=== PATIENT | female | born 1950 | race Caucasian/White ===

== ENCOUNTER 2018-09-28 06:46 | Day surgery (SDC) | payer MEDICARE ==
[2018-09-27 13:20] VITALS: BMI 18.3
--- NOTE | 2018-09-28 10:21 | RAD ---
CERVICAL MYELOGRAM: Date: 09/28/18 HISTORY: Cervicalgia. EXPOSURE: 0.5 minutes. 30.1 mGy*cm^2. 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 Vertebral body height is maintained. No fracture. There is moderat e degenerative change at the thoracolumbar junction. 2 VIEW SLIP BRIDGE OPERATOR CERVICAL SPINE: There is no prevertebral soft tissue swelling. Predental space is normal. Moderate to severe loss of disc space height at C5-C6, C6-C7, and C7-T1. There is anterolisthesis of C4 upon C5 (2.3 mm). CERVICAL MYELOGRAM: A total of 10 mL Isovue-M 300 contrast administered intrathecally. No immediate or postprocedure comp lications. TECHNIQUE: Consent obtained to perform a lumbar puncture for cervical myelogram. The L3-L4 level was deemed appr opriate. Skin was prepped and draped in the sterile fashion. 1% lidocaine, buffered with sodium bicar bonate, was used for local anesthesia. Under fluoroscopic guidance, a 22 gauge spinal needle was adva nced into the CSF space. Inner stylette was removed. Prompt flow of clear CSF to the hub of the needl e. Via a short tubing catheter, a total of 10 mL of Isovue-M 300 contrast was administered intratheca lly. The patient tolerated the procedure well. No immediate or postprocedure complications. IMPRESSION: Successful lumbar puncture for cervical myelogram. POS: [facility]
[2018-09-28] MEDS ORDERED: Iopamidol-M 300 61% 15 ML VIAL ONE (10:34)
--- NOTE | 2018-09-28 10:37 | CT ---
POST MYELOGRAM CERVICAL SPINE CT: Date: 09/28/18 HISTORY: Cervicalgia. COMPARISON: None. TECHNIQUE: Post myelogram cervical spine CT is performed in the axial plane. Reformatted images are submitted fo r interpretation. FINDINGS: No craniocervical dissociation. Lateral masses of C1 and C2 have overall appropriate articulation. Th ere is 2.1 mm of anterolisthesis of C3 upon C4 and 2.5 mm of anterolisthesis of C4 upon C5. Cervical spine vertebral body height is maintained. There is no fracture. The visualized soft tissue neck structures are unremarkable. No prevertebral soft tissue swelling. Mediastinum is unremarkable. There is scarring in both lung apices. C2-C3: No significant central canal stenosis. Neural foramina are patent. C3-C4: Broad based disc osteophyte complex. Mild central canal stenosis. Degenerative changes in the right facet and right uncovertebral hypertrophy result in mild right foraminal narrowing. Left neura l foramen is patent. C4-C5: Broad based disc osteophyte complex abuts the thecal sac. No significant central canal stenos is. Neural foramina is patent. There is mild right facet hypertrophy. C5-C6: Broad based disc osteophyte complex abuts the thecal sac. Ventral subarachnoid space is maint ained. However, there is mild deformity of the ventral cord. Nevertheless, there is no significant ce ntral canal stenosis. Neural foramina are patent. There is mild right facet hypertrophy. C6-C7: Broad based disc osteophyte complex abuts the thecal sac. Central and left paracentral subara chnoid space is effaced anteriorly. Minimal deformity of the ventral cord. Mild central canal stenosi s. Right neural foramen is patent. Mild left foraminal narrowing due to left uncovertebral hypertroph y. C7-T1: Broad based disc abuts the thecal sac. No significant central canal stenosis. Neural foramina are patent. IMPRESSION: Degenerative changes of cervical spine as above. POS: [facility]
== END 2018-09-28 12:39 | disposition home or self-care (01) ==
LOC: RAD 06:46 → EDSTATUS 08:00 → RAD 12:39
PROVIDERS: ATTEND Neurological Surgery
PROC: B01B1ZZ Fluoroscopy of Spinal Cord using Low Osmolar Contrast (ICD-10-PCS; principal; 2018-09-28)
DX: M48.02 Spinal stenosis, cervical region (principal); M25.78 Osteophyte, vertebrae; F41.9 Anxiety disorder, unspecified; F32.9 Major depressive disorder, single episode, unspecified; I10 Essential (primary) hypertension; K50.90 Crohn's disease, unspecified, without complications; Z87.891 Personal history of nicotine dependence; Z79.899 Other long term (current) drug therapy; Z88.8 Allergy status to other drugs, medicaments and biological substances
CPT/HCPCS: 62302; 72126; Q9967

== ENCOUNTER 2018-10-03 14:09 | Outpatient (CLI) | payer MEDICARE ==
--- NOTE | 2018-10-03 15:19 | RAD ---
CERVICAL SPINE AP, LATERAL STANDARD: History: Neck pain, numbness and tingling. Comparison: CT 09-28-18 FINDINGS: There is grade I C4 over C5 anterolisthesis in the neutral position approximately 4 mm, which does in crease to 5 mm with flexion and decrease to 3 mm with extension. Severe narrowing of the C5-6 and C6-7 disc spaces with anterior and posterior disc osteophyte complex es. IMPRESSION: Grade I C4 over C5 anterolisthesis with translation in flexion and extension. POS: [facility]
== END 2018-10-03 14:10 | disposition home or self-care (01) ==
LOC: TBSIIMAG 14:09
PROVIDERS: ATTEND Neurological Surgery
DX: M47.812 Spondylosis without myelopathy or radiculopathy, cervical region (principal); M43.12 Spondylolisthesis, cervical region
CPT/HCPCS: 72040

== ENCOUNTER 2018-11-27 08:37 | Outpatient (CLI) | payer MEDICARE ==
--- NOTE | 2018-11-27 10:58 | CT ---
FEXAM: Abdomen and pelvic CT scan with and without contrast: CT enterography protocol performed, with the use of orally administered volumen and IV contrast HISTORY: Crohn's disease. Abdominal pain. History of prior bowel resections. COMPARISON: None FINDINGS: The visualized lung bases are clear. Liver: Unremarkable. Gallbladder:Unremarkable. Pancreas:Unremarkable Spleen:Unremarkable. Adrenal glands:Unremarkable. Kidneys:No renal calculus or acute obstruction.Punctate parenchymal hypodensities of the left kidn ey too small to definitively characterize Bowel: There are sites of hyperdense suture and metallic clips related to prior bowel resections. The re is fluid distention of small bowel which is subsequently, physiologically distended, with the exce ption of the region of the distal ileum, which remains small in caliber. There is mild swirling of th e mesentery within this region which may relate to postoperative distortion. The possibility of a loc alized mesenteric distortion from internal hernia is not entirely excluded. Moderate retained fecal i s present throughout the colon most notable at the rectosigmoid region. Urinary Bladder: The urinary bladder is unremarkable. Adenopathy:No adenopathy within the abdomen or pelvis. Free Air: No free air. Ascites: No ascites. Osseous structures: No acute osseous abnormalities. IMPRESSION: Chronic appearing changes of the distal ileum, without acute inflammatory process. Postsurgical roberts es of the bowel are present and there is associated swirling of the mesentery within the right lower quadrant.
[2018-11-27] MEDS ORDERED: Iopamidol 370 76% 50 ML VIAL FS ONE (14:44)
== END 2018-11-27 08:38 | disposition home or self-care (01) ==
LOC: CT 08:37
PROVIDERS: ATTEND Internal Medicine
DX: K50.90 Crohn's disease, unspecified, without complications (principal); K66.0 Peritoneal adhesions (postprocedural) (postinfection); R13.10 Dysphagia, unspecified; Z98.890 Other specified postprocedural states
CPT/HCPCS: 74178; 82565

== ENCOUNTER 2019-02-10 11:04 | Emergency (ER) | payer MEDICARE ==
[~2019-02-10 11:04] MED LIST: ISOVUE-370 76%-LOCM 1 ML ONE
[2019-02-10 11:28] LABS: #Basophils 0.2 thou/uL (0.0-0.2); #Eosinphils 0.1 thou/uL (0.0-0.7); #Lymphocytes 5.1 thou/uL (1.20-3.40); #Neutrophils 7.6 thou/uL (1.40-6.50); %Basophils 1.2 % (0.0-1.0); %Eosinophils 0.6 % (0.0-10.0); %Lymphocytes 36.9 % (21.0-51.0); %Monocytes 6.9 % (0.0-10.0); %Neutrophils 54.4 % (42.0-75.0); Mean Corpuscular HGB CONC 33.4 g/dL (32.0-36.0); Mean Corpuscular Volume 89.9 fL (78.0-98.0); Mean Platelet Volume 7.4 fL (7.4-10.4); Platelet Count 503 thou/uL (130-400); RBC Distribution Width 12.2 % (11.5-14.5); Red Blood Cell (RBC) Count 4.65 mill/uL (4.20-5.40); White Blood Cell (WBC) Count 13.9 thou/uL (4.8-10.8)
[2019-02-10] MEDS ORDERED: Ondansetron PF 4 MG/2 ML Vial ONE (11:37)
--- NOTE | 2019-02-10 11:37 | RAD ---
EXAM: Portable chest PROVIDED CLINICAL HISTORY: Chest pain COMPARISON: None FINDINGS: Cardiac and mediastinal silhouette is within normal limits. No focal consolidation, pleural fluid or pneumothorax evident. Left subclavian cardiac pacing device is noted with lead tips overlying the expected locations of RA and RV. IMPRESSION: No evidence for an acute cardiopulmonary process.
--- NOTE | 2019-02-10 11:39 | RAD ---
EXAM: XR Abdomen 2 View PROVIDED CLINICAL HISTORY: Abdominal pain COMPARISON: None. FINDINGS: There is partial visualization of cardiac pacemaking leads. Visualized lung bases are clear. Surgical clips overlie the left abdomen with surgical clips and radiopaque suture material overlying the pelvis. The bowel gas pattern is overall nonspecific. There is gaseous distention of loops of bowel w ithin the central abdomen. Osseous structures have a normal appearance. Calcifications overlie the pelvis most likely attributable to phleboliths. IMPRESSION: Postsurgical changes of the abdomen and pelvis with nonspecific bowel gas pattern.
[2019-02-10] MEDS ORDERED: Morphine 4 MG/ML VIAL ONE (11:42)
[2019-02-10 11:48] LABS: Albumin 4.7 g/dL (3.4-4.8); Calcium 10.1 mg/dL (7.8-10.44); Chloride 106 mmol/L (98-107); Globulin 3.1 g/dL (2.4-3.5); Glucose 90 mg/dL (80-115); Potassium 3.6 mmol/L (3.5-5.1); Protein, Total 7.8 g/dL (6.0-8.3); Sodium 141 mmol/L (136-145)
[2019-02-10 11:58] LABS: ALT (SGPT) 12 U/L (8-55); AST (SGOT) 16 U/L (5-34); Alkaline Phosphatase 101 U/L (40-150); BUN (Urea Nitrogen) 19 mg/dL (9.8-20.1); Bilirubin, Total 0.6 mg/dL (0.2-1.2); Calc. Creatinine Clearance 0 mL/min (70-130); Carbon Dioxide 18 mmol/L (23-31); Estimated GFR-MDRD 51; Lipase 46 U/L (8-78)
[2019-02-10] MEDS ORDERED: Ondansetron PF 4 MG/2 ML Vial SLOW IVP PRN (12:00)
[2019-02-10] MEDS ORDERED: Sodium Chloride 0.9% 1,000 ML IV SCH (12:00)
[2019-02-10] MEDS ORDERED: Morphine 4 MG/ML VIAL SLOW IVP SCH (12:00)
[2019-02-10 12:03] LABS: Anion Gap 21 mmol/L (10-20)
--- NOTE | 2019-02-10 13:17 | CT ---
EXAM: CT Abdomen Pelvis W Con PROVIDED CLINICAL HISTORY: Abdominal pain, history of Crohn's disease COMPARISON: 11/27/2018 FINDINGS: The visualized lung bases are free of significant opacity. There is moderate fluid distention of the stomach and duodenum to the level of the midline subsequent to which the duodenum appears decompressed. The duodenum measures about 2.7 cm in transverse dimension the proximal third portion. No additional bowel dilatation is evident. Postoperative change s are again seen. No inflammatory fat stranding, free fluid or free air apparent. Nonspecific prominence of the rectal mucosa. Vascular calcifications are noted. The osseous structures demonstrate no concerning lytic or blastic lesions. IMPRESSION: 1. 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 2. Nonspecific prominence and enhancement of the rectal mucosa, which may reflect proctitis.
--- NOTE | 2019-02-10 13:20 | CT ---
EXAM: CT pulmonary angiogram with IV contrast and 3-D MIP reconstructions PROVIDED CLINICAL HISTORY: Dyspnea COMPARISON: None FINDINGS: There is no evidence for central or segmental pulmonary embolus. The lungs are free of significant op acity. No pleural fluid or pneumothorax apparent. No evidence for thoracic lymph node enlargement. The airway appears patent and of normal caliber. The visualized portions of the upper abdomen demonst rate no acute findings. The osseous structures demonstrate no concerning lytic or blastic lesions. Vascular calcification including coronary calcium. Postoperative changes of bilateral breast implants with associated soft tissue gas. Soft tissue gas is seen within the left axillary region is presumably postoperative. IMPRESSION: No evidence for central or segmental pulmonary embolus.
[2019-02-10 14:38] LABS: Bilirubin Negative (Negative); Blood, Urine Negative (Negative); Clarity CLEAR (Clear); Glucose, Urine (Dipstick) Negative (Negative); Leukocyte Negative (Negative); Nitrite Negative (Negative); Protein, Urine (Dipstick) Negative (Neg-Trace); Urobilinogen 0.2 mg/dL (0.2-1.0)
== END 2019-02-10 15:18 | disposition home or self-care (01) ==
LOC: ERS 11:04
DX: K29.70 Gastritis, unspecified, without bleeding (principal); K52.9 Noninfective gastroenteritis and colitis, unspecified; K62.89 Other specified diseases of anus and rectum; R55 Syncope and collapse; Z79.899 Other long term (current) drug therapy; Z87.891 Personal history of nicotine dependence
CPT/HCPCS: 36415; 36416; 71045; 71275; 74019; 74177; 80053; 81003; 83605; 83690; 84484; 85025; 86850; 86900; 86901; 96361; 96374; 96375; J2270; J2405; Q9966